=== PATIENT | female | born 1960 | race Caucasian/White ===

== ENCOUNTER → 2019-07-14 14:23 | Outpatient (CLI) | payer OTHER, SELFPAY ==
--- NOTE | ~2019-07-14 | US_ITS ---
EXAMINATION: US thyroid EXAM DATE: 07/14/2019 14:45 INDICATION: Goiter. TECHNIQUE: Multiple grayscale and Doppler images of the thyroid were obtained (by a technologist who performed the scan) and subsequently reviewed. Individual nodules may be reported using TI-RADS syst em as designated by the 2017 ACR White Paper TI-RADS committee. There is no prior study for comparis on. FINDINGS: The right thyroid lobe measures 4.3 x 1.5 x 1.4 cm, the left measuring 4.6 x 1.1 x 1.4 cm. There is a 3 mm nodule in each of the thyroid lobes requiring no further ultrasound follow-up unless additional palpable abnormality develops. IMPRESSION: 1. Mild thyromegaly. 2. Couple small thyroid nodules not likely clinically significant. Reviewed, dictated and finalized at location A. TEACHER
== END ==
PROVIDERS: PCP Physician Assistant; Visit Provider Internal Medicine Endocrinology, Diabetes & Metabolism
DX: E04.2 Nontoxic multinodular goiter (principal)
CPT/HCPCS: 76536

== ENCOUNTER 2020-02-15 12:34 | Outpatient (NON) | payer OTHER, SELFPAY ==
[2020-02-15 23:09] LABS: SARS-CoV-2 RNA PCR Negative
== END 2020-02-15 12:35 ==
PROVIDERS: PCP Physician Assistant; Visit Provider Physician Assistant
DX: Z20.828 Contact with and (suspected) exposure to other viral communicable diseases (principal)
CPT/HCPCS: 87635; C9803; U0003

== ENCOUNTER → 2021-04-29 14:05 | Outpatient (CLI) | payer OTHER, SELFPAY ==
--- NOTE | ~2021-04-29 | MM_ITS ---
EXAMINATION: MM screening kristian BI w lauren HISTORY: Screening mammogram TECHNIQUE: Craniocaudal and mediolateral oblique 3-D tomosynthesis images were obtained and synthetic 2-D images were generated. CAD analysis was submitted and interpreted. COMPARISON: 04/22/2018, 09/20/2016, 07/26/2014 BREAST PARENCHYMAL COMPOSITION: The breasts are heterogeneously dense, which may obscure small masses . FINDINGS: Scattered benign-appearing calcifications are present. There is no evidence of suspicious m ass, calcification, or architectural distortion to suggest malignancy in either breast. There has bee n no suspicious interval change. IMPRESSION: 1. No mammographic evidence of malignancy. 2. Recommend routine screening mammography in one year. BI-RADS Category 2: Benign finding(s). Reviewed, dictated and finalized at location A. AL SPECIALIST
== END ==
PROVIDERS: PCP Physician Assistant; Visit Provider Obstetrics & Gynecology
DX: Z12.31 Encounter for screening mammogram for malignant neoplasm of breast (principal)
CPT/HCPCS: 77063; 77067

== ENCOUNTER → 2022-08-18 15:39 | Outpatient (CLI) | payer OTHER, SELFPAY ==
--- NOTE | ~2022-08-18 | MM_ITS ---
EXAMINATION: MM screening kristian BI w lauren HISTORY: Screening mammogram TECHNIQUE: Craniocaudal and mediolateral oblique 3-D tomosynthesis images were obtained and synthetic 2-D images were generated. CAD analysis was submitted and interpreted. COMPARISON: 04/29/2021, 04/22/2018, 09/20/2016 bilateral screening mammogram examinations BREAST PARENCHYMAL COMPOSITION: The breasts are heterogeneously dense, which may obscure small masses . FINDINGS: There is no evidence of suspicious mass, calcification, or architectural distortion to sugg est malignancy in either breast. There has been no suspicious interval change. IMPRESSION: 1. No mammographic evidence of malignancy. 2. Recommend routine screening mammography in one year. BI-RADS Category 1: Negative Reviewed, dictated and finalized at location A.
== END ==
PROVIDERS: Visit Provider Obstetrics & Gynecology
DX: Z12.31 Encounter for screening mammogram for malignant neoplasm of breast (principal)
CPT/HCPCS: 77063; 77067

== ENCOUNTER 2025-02-22 09:21 | Outpatient (CLI) | payer OTHER, SELFPAY ==
--- OUTSIDE RECORDS SUMMARY | 2024-10-25 10:17 | XMS_ITS | Referral Summary ---
Author Organization [facility] [address] [facility] tt Address [address] [place] [address] Care Team Providers Care Pulp Grinder Name Role Phone January Espinoza NP Primary Care Provider Matthew Perez MD Unavailable [phone] Ramírez Torres MD Unavailable [phone] Encounters Date Type Department Care Team Description 09/30/2024 Results Follow-Up [facility] Complete Care [address] [facility] Medical Office Building [address], [address] [place] [address] January Espinoza NP CBC with auto differential, Erythrocyte sedimentation rate, Cyclic citrul peptide antibody, IgG, GAIL screen w/rflx NICOLE+dsDNA 09/27/2024 Telephone [facility] [address] [place] [address] Erin Castro RN GI Preprocedure 09/22/2024 3:00 PM CDT Office Visit [facility] Complete Care [address] [facility] Medical Office Building [address], [address] [place] [address] January Espinoza NP Encounter for wellness examination in adult (Primary Dx); Screening for colorectal cancer; Encounter to establish care; Fibromyalgia; Hormone imbalance; Hypothyroidism, unspecified type from Last 3 Months Allergies No known active allergies Medications ciprofloxacin (CIPRO) 500 mg tablet 0 Active escitalopram (LEXAPRO) 10 mg tablet TK 1 T PO QD 0 Active progesterone (PROMETRIUM) 100 mg capsule TK 1-2 CS PO QPM 6 DAYS/WEEK 0 Active Nature-Throid 65 mg tablet 0 Active levocetirizine (Xyzal) 5 mg tablet Take 5 mg by mouth every evening Active traZODone (DESYREL) 50 mg tablet Take 1 tablet (50 mg total) by mouth daily Active MAGNESIUM ORAL Take by mouth A ctive acidophilus-pec tin, citrus 100 million cell-10 mg capsule Take by mouth Activ e testosterone cypionate (DEPO-TESTOTERO NE) 200 mg/mL injection INJ 0.1 ML IM Q 7 TO 10 DAYS 0 Active TRACK MAINTAINER Thyroid 60 mg tablet TK 1 T PO QAM OES FOR 30 MIN 0 Active triamterene-hyd roCHLOROthiazid e (Dyazide) 37.5-25 mg per tablet/capsuleI ndications:Meni ere's disease, unspecified laterality Take 1 tablet/capsule by mouth daily 30 tablet/capsu le 11 0 Active predniSONE (DELTASONE) 20 mg tablet Take 1 tablet (20 mg) by mouth 5 Active estradioL (CLIMARA) 0.1 mg/[address] 1 patch on the skin once a week Active polyethylene glycol (GoLYTELY) 236-22.74-6.74 -5.86 gram solution Drink 2L(half of jug)at 6pm night before procedure and 2L(remainder of jug)at 3:30 am day of test FOLLOW INSTRUCTIONS SENT BY OUR OFFICE 4000 mL 5 Active Active Problems Problem Noted Date Diagnosed Date Hypothyroidism 09/27/2024 Fibromyalgia 09/27/2024 Hormone imbalance 09/27/2024 Prediabetes 09/27/2024 Irritable bowel syndrome wit h both constipation and diarrhea 09/27/2024 Insomnia 09/27/2024 Screening for colorectal cancer 09/22/2024 Chronic fatigue Resolved Problems Problem Noted Date Diagnosed Date Resolved Date Screening for colorectal cancer 09/22/2024 09/27/2024 Social History Tobacco Use Types Packs/Day Years Used Date Smoking Tobacco: Never Smokeless Tobacco: Never Alcohol Use Standard Drinks/Week Comments Not Currently 0 (1 standard drink = 0.6 oz pur e alcohol) Humiliation, Afraid, Rape, and Kick questionnair e Answer Date Recorded Within the last year, have y ou been afraid of your partner or ex-partner? No 09/22/2024 Within the last year, have y ou been humiliated or emotionally abused in other ways by your partner or ex-partner? No Within the last year, have y ou been kicked, hit, slapped, or otherwise physically hurt by your partner or ex-partner? No 09/22/2024 Within the last year, have y ou been raped or forced to have any kind of sexual activity by your partner or ex-partner? No 09/22/2024 AUDIT-C Answer Date Recorded Q1: How often do you have a drink containing alc ohol? Monthly or less 09/22/2024 Q2: How many drinks containi ng alcohol do you have on a typical day when you are drinking? 1 or 2 09/22/2024 Q3: How often do you have si x or more drinks on one occasion? Never 09/22/2024 PHQ-2 Answer Date Recorded PHQ-2 Total Score (If total score is 3 or more points, staff should administer the PHQ-9) 2 09/22/2024 Exercise Vital Sign Answer Date Recorde d On average, how many days pe r week do you engage in moderate to strenuous exercise (like a brisk walk)? 5 days 09/22/2024 On average, how many minutes do you engage in exercise at this level? 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 GRADER Gender Identity Female 09/25/2024 9:24 PM CDT Sexual Orientation Straight 09/25/2024 9: 24 PM CDT Last Filed Vital Signs Vital Sign Reading Time Taken Comments Blood Pressure 125/74 09/22/2024 3:10 PM CDT Pulse 80 09/22/2024 3:10 PM CDT Temperature 36.8 C (98.3 F) 09/22/2024 3:10 PM CDT Respiratory Rate 16 03/14/2020 8:15 AM WOOL AND PELT GRADER Oxygen Saturation 97% 09/22/2024 3:10 PM CDT Inhaled Oxygen Concentration - - Weight 55.8 kg (123 lb) 09/22/2024 3:10 PM CDT Height 152.4 cm (5') 09/22/2024 3:10 PM CDT Body Mass Index 24.02 09/22/2024 3:10 PM CDT Plan of Treatment Upcoming Encounters Date Type Department Care Team (Late st Contact Info) Description 11/08/2024 10:30 AM CDT Hospital Encounter [facility] Digestive Disease [place] [address] [address] Michelle Jenkins MD PhD [address] [facility] [address] [place] [address] 11/08/2024 10:30 AM CDT - 11/08/2024 11:15 AM CDT Surgery [facility] Dig[facility]ive Disease [address] [address] Michelle Jenkins MD PhD [address] [facility] [address] [place] [address] COLONOSCOPY Scheduled Procedures Name Priority Associated Diagnoses Date/Ti me COLONOSCOPY Open Access Screening for colorectal cancer 11/08/2024 10:30 AM CDT Procedures Procedure Name Priority Date/Time Associated Diagnosis Comments GAIL TITER & PATTERN Routine 09/28/2024 8 :05 AM CDT GAIL SCREEN W/REFLEX NICOLE+DSDNA Routine 09/28/2024 8:05 AM CDT Fibromyalgia CYCLIC CITRUL PEPTIDE ANTIBODY, IGG Routine 09/28/2024 8:05 AM CDT Fibromyalgia ERYTHROCYTE SEDIMENTATION RATE Routine 09/28/2024 8:05 AM CDT Fibromyalgia CBC WITH AUTO DIFFERENTIAL Routine 09/28/2024 8:05 AM CDT Fibromyalgia from Last 3 Months Results * (ABNORMAL) GAIL screen w/rflx NICOLE+dsDNA (09/28/2024 8:05 AM CDT) GAIL, qual POSITIVE( A) NEGATIVE [facility] Comment: GAIL IFA is a first line screen for detecting the presence of up to approximately 150 autoantibodies in various autoimmune diseases. A positive GAIL IFA result is suggestive of autoimmune disease and reflexes to titer and pattern. Further laboratory testing may be considered if clinically indicated. For additional information, please refer to http://education.[employer]ker[employer]/faq/CWL167 (This link is being provided for informational/ educational purposes only.) DNA (DS) ab 1 IU/mL [facility] Comment: IU/mL Interpretation < or = 4 Negative 5-9 Indeterminate > or = 10 Positive SCL-70 ANTIBODY <1.0 NEG <1.0 NEG AI [facility] SM ANTIBODY <1.0 NEG <1.0 NEG AI [facility] SM/CLASSROOM TEACHER ANTIBODY <1.0 NEG <1.0 NEG AI [facility] SJOGREN'S ANTIBODY (SS-A) <1.0 NEG <1.0 NEG AI [facility] SJOGREN'S ANTIBODY (SS-B) <1.0 NEG <1.0 NEG AI [facility] Blood 09/28/2024 8:05 AM CDT 09/28/2024 8:05 AM CDT Narrative [facility] - 09/30/2024 3:07 PM CDT FASTING:YES FASTING: YES January Espinoza NP LAB BLOOD GUERA FIGUEROA Final Result [facility] [address] [address] * (ABNORMAL) Antinuclear Antibodies Titer and Pattern (09/28/2024 8:05 AM CDT) GAIL, quant 1:40(H) titer [facility] Comment: A low level GAIL titer may be present in pre-clinical autoimmune diseases and normal individuals. Reference Range <1:40 Negative 1:40-1:80 Low Antibody Level >1:80 Elevated Antibody Level GAIL, pattern Nuclear, Speckled( A) [facility] Comment: Speckled pattern is associated with mixed connective tissue disease (MCTD), systemic lupus erythematosus (SLE), Sjogren's syndrome, dermatomyositis, and systemic sclerosis/polymyositis overlap. AC-2,4,5,29: Speckled International Consensus on GAIL Patterns (https://doi.org/10.1515/exfe-9664-2811) 09/28/2024 8:05 AM CDT 09/28/2024 8:05 AM CDT Narrative [facility] - 09/30/2024 3:07 PM CDT FASTING:YES FASTING: YES January Espinoza NP LAB BLOOD GUERA FIGUEROA Final Result [facility] [address] [place] [address] * CBC with auto differential (09/28/2024 8:05 AM CDT) WBC 5.5 3.8 - 10.8 Thousand/u L [facility] RBC, POC 4.46 3.80 - 5.10 Million/uL [facility] Hgb 13.9 11.7 - 15.5 g/dL [facility] Hct 42.7 35.0 - 45.0 % [facility] MCV 95.7 80.0 - 100.0 fL [facility] MCH 31.2 27.0 - 33.0 pg [facility] MCHC 32.6 32.0 - 36.0 g/dL [facility] Comment: For adults, a slight decrease in the calculated MCHC value (in the range of 30 to 32 g/dL) is most likely not clinically significant; however, it should be interpreted with caution in correlation with other red cell parameters and the patient's clinical condition. Rdw 11.9 11.0 - 15.0 % [facility] Platelets 271 140 - 400 Thousand/u L [facility] MPV 10.1 7.5 - 12.5 fL [facility] Neutrophils, abs 2,629 1,500 - 7,800 cells/uL [facility] Lymphocytes, abs 2,217 850 - 3,900 cells/uL [facility] Monocyte abs 380 200 - 950 cells/uL [facility] Eosinophils, abs 248 15 - 500 cells/uL [facility] Basophils, abs 28 0 - 200 cells/uL [facility] Neutrophils 47.8 % [facility] Lymphocyte pct 40.3 % [facility] Monocytes 6.9 % [facility] Eosinophils 4.5 % [facility] Basophils 0.5 % [facility] Blood 09/28/2024 8:05 AM CDT 09/28/2024 8:05 AM CDT Narrative [facility] - 09/30/2024 3:07 PM CDT FASTING:YES FASTING: YES us January Espinoza NP LAB BLOOD ORDAlfreda FIGUEROA Final Result [facility] [address] [place] [address] * Cyclic citrul peptide antibody, IgG (09/28/2024 8:05 AM CDT) Pathologist [facility] Cyclic citrullinated peptide ab, IgG <16 UNITS [facility] Comment: Reference Range Negative: <20 Weak Positive: 20-39 Moderate Positive: 40-59 Strong Positive: >59 Blood 09/28/2024 8:05 AM CDT 09/28/2024 8:05 AM CDT Narrative [facility] - 09/30/2024 3:07 PM CDT FASTING:YES FASTING: YES us January Espinoza NP LAB BLOOD ORDE CAROLINA Final Result [facility] [address] [address] * Erythrocyte sedimentation rate (09/28/2024 8:05 AM CDT) Erythrocyte sedimentation rate 2 < OR = 30 mm/h [facility] Blood 09/28/2024 8:05 AM CDT 09/28/2024 8:05 AM CDT Narrative [facility] - 09/30/2024 3:07 PM CDT FASTING:YES FASTING: YES January Espinoza TRACK MAINTAINER LAB BLOOD GUREA FIGUEROA Final Result Performing Organization Address City/[facility]/ZIP Co de Phone Number [facility] [address] [address] [phone] from Last 3 Months Insurance [facility] Care Teams Pulp Grinder Relationship Specialty Start Date End Date January Espinoza NP [address] [facility], [address] [address] PCP - General Nurse Practitioner 09/22/24 Matthew Perez MD [address] [facility] [address] [address] Referring Physician Obstetrics and Gynecology 09/22/24 Ramírez Torres MD [address] [address] Referring Physician Family Medicine 09/22/24
--- OUTSIDE RECORDS SUMMARY | 2024-10-25 10:17 | XMS_ITS | Encounter Summary ---
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 Procedures US Thyroid January Espinoza NP [address] [place] [address] Phone: tel: fax: [address] [address] Referral ID Status Reason Start Date Expiration Date V isits Requested Visits Authorized [id number] Authorized 10/13/2024 11/12/2025 1 1 Encounter Details Date Type Department Care Team (Late st Contact Info) Description 09/30/2024 Results Follow-Up [facility] Complete Care [address] [place] [address] Medical Office Building [address], [address] [place] [address] January Espinoza NP [address] [place] [address] CBC with auto differential, Erythrocyte sedimentation rate, Cyclic citrul peptide antibody, IgG, GAIL screen w/rflx NICOLE+dsDNA Social History Tobacco Use Types Packs/Day Years [...] on file Legal Sex Female 6:58 PM MEDICAL 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 Gender Identity Female 09/25/2024 9:24 PM CDT Sexual Orientation Straight 09/25/2024 9: 24 PM CDT documented as of this encounter Plan of Treatment Upcoming Encounters Date Type Department Care Team (Late st Contact Info) Description 11/08/2024 10:30 AM CDT Hospital Encounter [facility] Digestive Disease [place] [address] [address] Michelle Jenkins MD PhD [address] [facility] [place] [address] 11/08/2024 10:30 AM CDT - 11/08/2024 11:15 AM CDT Surgery [facility] Digestive Disease [place] [address] [address] Michelle Jenkins MD PhD [address] [facility] [place] [address] COLONOSCOPY Scheduled Orders Name Type Priority Associated Diagnoses Orde r Schedule US Thyroid Imaging Schedule Routine , Read Routine (OP Routine) 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 Expected: 10/13/2024, Expires: 10/13/2025 Scheduled Procedures Name Priority Associated Diagnoses Date/Ti me COLONOSCOPY Open Access Screening for colorectal cancer 11/08/2024 10:30 AM CDT documented as of this encounter Visit Diagnoses Diagnosis Screening for colorectal cancer- Primary 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- Primary Screening for colorectal cancer documented in this encounter Care Teams Circus Roustabout Relationship Specialty Start Date End Date January Espinoza NP [address] [facility] [address] [place] [address] PCP - General Nurse Practitioner 09/22/24 Matthew Perez MD [address] [facility] [address] [facility] [address] [place] [address] Referring Physician Obstetrics and Gynecology 09/22/24 Ramírez Torres MD [address] [address] Referring Physician Family Medicine 09/22/24 documented as of this encounter
--- OUTSIDE RECORDS SUMMARY | 2024-10-25 10:17 | XMS_ITS | Clinical Summary ---
Author Organization [facility] [address] [facility] tt Address [address] [place] [address] Care Team Providers Care Food And Beverage Attendant Name Role Phone January Espinoza QUALITY LEAD Primary Care Provider Matthew Perez MD Unavailable [phone] Ramírez Torres MD Unavailable [phone] Allergies No known active allergies Medications ciprofloxacin [...] Q 7 TO 10 DAYS 0 Active QUALITY LEAD Thyroid 60 mg tablet TK 1 T [...] Date Screening for colorectal cancer 09/22/2024 09/27/2024 Encounters Date Type Department Care Team Description 09/30/2024 Results Follow-Up [facility] [address] [address] [place] [address] January Espinoza NP CBC with auto differential, Erythrocyte sedimentation rate, Cyclic citrul peptide antibody, IgG, GAIL screen w/rflx NICOLE+dsDNA 09/27/2024 Telephone [facility] [address] [place] [address] Erin Castro RN GI Preprocedure 09/22/2024 3:00 PM CDT Office Visit [facility] [address] [place] [address] January Espinoza NP Encounter for wellness examination in adult (Primary Dx); Screening for colorectal cancer; Encounter to establish care; Fibromyalgia; Hormone imbalance; Hypothyroidism, unspecified type from Last 3 Months Medical History Medical History Date Comments Hypothyroidism Nicolle Delarosa virus infection Fibromyalgia Prediabetes Gestational diabetes IBS (irritable bowel syndrome) 1973 Small intestinal bacterial overgrowth (SIBO) 202 0 Chronic fatigue Shingles Candidal enteritis Family History Medical History Relation Name Comments Diabetes Father Hypertension Father Skin cancer Father Heart attack Maternal Grandfather Heart disease Maternal Grandfather Heart disease Maternal Grandmother Dementia Mother Relation Name Status Comments Father Maternal Grandfather Maternal Grandmother Mother Paternal Grandfather Paternal Grandmother Social History Tobacco Use Types Packs/Day Years [...] on file Legal Sex Female 6:58 PM STUDENT SUPPORT COUNSELOR Gender Identity Female 09/25/2024 9:24 PM CDT Sexual Orientation Straight 09/25/2024 9: 24 PM CDT Obstetrics History Last Filed Vital Signs Vital Sign Reading Time Taken Comments Blood Pressure 125/74 09/22/2024 3:10 PM CDT Pulse 80 09/22/2024 3:10 PM CDT Temperature 36.8 C (98.3 F) 09/22/2024 3:10 PM CDT Respiratory Rate 16 03/14/2020 8:15 AM STUDENT SUPPORT COUNSELOR Oxygen Saturation 97% 09/22/2024 3:10 PM CDT Inhaled Oxygen Concentration - - Weight 55.8 kg (123 lb) 09/22/2024 3:10 PM CDT Height 152.4 cm (5') 09/22/2024 3:10 PM CDT Body Mass Index 24.02 09/22/2024 3:10 PM CDT Plan of Treatment Upcoming Encounters Date Type Department Care Team (Late st Contact Info) Description 11/08/2024 10:30 AM CDT Hospital Encounter [facility] Digestive [facility] [place] [id number] [address] Michelle Jenkins MD PhD [address] [place] [address] 11/08/2024 10:30 AM CDT - 11/08/2024 11:15 AM CDT Surgery [facility] Digestive Disease [place] [address] [address] Michelle Jenkins MD PhD [address] [place] [address] COLONOSCOPY Scheduled Procedures Name Priority Associated Diagnoses Date/Ti me COLONOSCOPY Open Access Screening for colorectal cancer 11/08/2024 10:30 AM CDT Health Maintenance Due Date Last Done Comments Breast Cancer Screening-Mammogram 1960 Cervical Cancer Screening 1961 Colon Cancer Screening-Colonoscopy 1961 DTaP/Tdap/Td Vaccine (1 - Tdap) 1972 Zoster Vaccine (1 of 2) 2011 Covid-19 Vaccine (3 - season) 2024 08/24/2020, 08/03/2020 Influenza Vaccine (Season Ended) 2025 Depression Screening 09/22/2025 09/22/2024 Regular Well Visit/Exam 18-64 09/22/2025 09/22/2024 Hepatitis B Screening Discontinued Hepatitis C Screening Discontinued Pneumococcal vaccine <65 Aged Out No longer eligible based on patient's age to complete this topic Procedures Procedure Name Priority Date/Time Associated Diagnosis [...] AM CDT) GAIL, qual POSITIVE( A) NEGATIVE [facility] [place] Comment: GAIL IFA is a first line screen for detecting the presence of up to approximately 150 autoantibodies in various autoimmune diseases. A positive GAIL IFA result is suggestive of autoimmune disease and reflexes to titer and pattern. Further laboratory testing may be considered if clinically indicated. For additional information, please refer to http://education.[employer].Guanghetang/faq/VIG526 (This link is being provided for informational/ educational purposes only.) DNA (DS) ab 1 IU/mL [facility] [place] Comment: IU/mL Interpretation < or = 4 Negative 5-9 Indeterminate > or = 10 Positive SCL-70 ANTIBODY <1.0 NEG <1.0 NEG AI [facility] [place] SM ANTIBODY <1.0 NEG <1.0 NEG AI [facility] [place] [facility] SM/SCALLOP DREDGER ANTIBODY <1.0 NEG <1.0 NEG AI [facility] [place] SJOGREN'S ANTIBODY (SS-A) <1.0 NEG <1.0 NEG AI [facility] SJOGREN'S ANTIBODY (SS-B) <1.0 NEG <1.0 NEG AI [facility] [place] [facility] Blood 09/28/2024 8:05 AM CDT 09/28/2024 8:05 AM CDT Narrative [facility] - 09/30/2024 3:07 PM CDT FASTING:YES FASTING: YES us January Espinoza NP LAB BLOOD ORDAlfreda FIGUEROA Final Result [facility] [address] [place] [address] * (ABNORMAL) Antinuclear Antibodies Titer and Pattern [...] AC-2,4,5,29: [employer] International Consensus on GAIL Patterns (https://doi.org/10.1515/ieqh-0103-5425) 09/28/2024 8:05 AM CDT 09/28/2024 8:05 AM CDT Narrative [facility] - 09/30/2024 3:07 PM CDT FASTING:YES FASTING: YES us January LeesPhillip QUALITY LEAD LAB BLOOD GUERA FIGUEROA Final Result [facility] [address] [address] * CBC with auto differential (09/28/2024 8:05 [...] FASTING: YES January Espinoza NP LAB BLOOD ORDE RABLES Final Result Performing Organization Address [facility] Co de Phone Number [facility] [facility] [address] [place] [address] * Cyclic citrul peptide antibody, IgG (09/28/2024 8:05 AM CDT) Cyclic citrullinated peptide ab, IgG <16 UNITS [facility] Comment: Reference Range Negative: <20 Weak Positive: 20-39 Moderate Positive: 40-59 Strong Positive: >59 Blood 09/28/2024 8:05 AM CDT 09/28/2024 8:05 AM CDT Narrative [facility] - 09/30/2024 3:07 PM CDT FASTING:YES FASTING: YES January Espinoza NP LAB BLOOD ORDE RABLES Final Result Performing Organization Address [facility] de Phone Number [facility] [address] [place] [address] * Erythrocyte sedimentation rate (09/28/2024 8:05 AM CDT) Pathologist [facility] Erythrocyte sedimentation rate 2 < OR = 30 mm/h [facility] Blood 09/28/2024 8:05 AM CDT 09/28/2024 8:05 AM CDT Narrative [facility] - 09/30/2024 3:07 PM CDT FASTING:YES FASTING: YES January Espinoza NP LAB BLOOD ORDE RABLES Final Result Performing Organization Address [facility] Co de Phone Number [facility] [place] [address] [place] [address] from Last 3 Months Insurance [facility] Address: [address] [place] [address] [facility]/PPO Address: [address] [place] [address] R [facility] Address: [address] [address] Care Teams Food And Beverage Attendant Relationship Specialty Start Date End Date January Espinoza NP [address] [facility] [address] [place] [address] PCP - General Nurse Practitioner 09/22/24 Matthew Perez MD [address] [place] [address] Referring Physician Obstetrics and Gynecology 09/22/24 Ramírez Torres MD [address] [facility] [address] [place] [address] Referring Physician Family Medicine 09/22/24
--- OUTSIDE RECORDS SUMMARY | 2025-02-22 10:29 | XMS_ITS | Clinical Summary ---
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 Primary Care Provider Matthew Perez MD Unavailable [phone] Ramírez Torres MD Unavailable [phone] Allergies Active Allergy Reactions Criticality Noted Date Comments House Dust Mite Headache Low 11/14/2024 Mold Headache Low 08/17/2024 feels sick Medications traZODone (DESYREL) 100 mg tablet Take 1 tablet (100 mg total) by mouth daily 100-150 mg nightly as needed for sleep Active MAGNESIUM ORAL Take by mouth A ctive acidophilus-pec tin, citrus 100 million cell-10 mg capsule Take by mouth Activ e polyethylene glycol (GoLYTELY) 236-22.74-6.74 -5.86 gram solution Drink 2L(half of jug)at 6pm night before procedure and 2L(remainder of jug)at 3:30 am day of test FOLLOW INSTRUCTIONS SENT BY OUR OFFICE 4000 mL 5 Active estradiol-noret hindrone acet (COMBIPATCH) 0.05-0.25 mg/[address] 1 patch on the skin 2 (two) times a week 8 patch 11 5 12/13/19 26 Active famotidine (PEPCID) 20 mg tablet Take 1 tablet (20 mg total) by mouth 2 (two) times a day Active QUERCETIN DIHYDRATE, BULK, MISC 1 Dose daily Active levocetirizine (Xyzal) 5 mg tablet Take 1 tablet (5 mg total) by mouth daily Active gabapentin (NEURONTIN) 300 mg capsule Take 1 capsule (300 mg total) by mouth 3 (three) times a day 90 capsule 4 5 12/10/19 Active Active Problems Problem Noted Date Diagnosed Date Menopause syndrome 12/08/2024 Hypothyroidism 09/27/2024 Fibromyalgia 09/27/2024 Hormone imbalance 09/27/2024 Prediabetes 09/27/2024 Irritable bowel syndrome wit h both constipation and diarrhea 09/27/2024 Insomnia 09/27/2024 Screening for colorectal cancer 09/22/2024 Chronic fatigue Resolved Problems Problem Noted Date Diagnosed Date Resolved Date Screening for colorectal cancer 09/22/2024 09/27/2024 Encounters Date Type Department Care Team Description 01/16/2025 Results Follow-Up [facility] [address] [place] [address] [email or web address] [address] [place] [phone] Andrade Bryan MD URINE MISC TO FRENCH CAMP, URINE MISC TO FRENCH CAMP, URINE MISC TO FRENCH CAMP 01/11/2025 Telephone [facility] Special[facility] Services [address] [place] [phone] Lin Corona, RN GI Preprocedure 01/06/2025 Telephone [facility] Specialty Services [address] [place] [phone] Lin Corona, RN GI Preprocedure 01/04/[address] [facility] Lab [facility] [place] [address] Andrade Bryan MD 01/03/2025 8:00 AM CDT - 01/03/2025 11:59 PM CDT Hospital Encounter [facility] [place] [address] Temperature intolerance; Chronic fatigue Discharge Disposition: Discharge to home or self care 01/03/2025 Results Follow-Up [facility] [address] [place], [place] [address] [address] [place] [phone] Andrade Bryan MD IgE, Allergen Epithelia/dander dog (animal) IgE, Allergen Dermatophagoides pteronyssinus (insect) IgE, Additional followed-up results: 23 12/28/2024 3:30 PM CDT Lab [facility] at [address] [place] [phone] Temperature intolerance; Chronic fatigue; Allergic rhinitis caused by mold 12/28/2024 1:00 PM CDT Office Visit [facility] [address] [facility] Medical Office Building 2 [address] [place] [address] Andrade Bryan MD Temperature intolerance (Primary Dx); Chronic fatigue; Mast cell disorder; Allergic rhinitis caused by mold 12/16/2024 Telephone [facility] Endocrinology Metabolism and Lipid [address] [facility] Floor 1, [address] [place] [address] India Bran RMA Prior Auth (Request for KRISHAN Climara Pro 0.045-0.015mg) 12/09/2024 2:40 PM CDT Office Visit [facility] [address] [place] [address] Office Building 4, [address] [place] [address] January Espinoza NP Temperature intolerance (Primary Dx) 12/09/2024 Orders Only [facility] Endocrinology Metabolism and Lipid [address] [facility] [address] [place] [phone] Christine Neville MD 12/09/2024 Orders Only [facility] Endocrinology Metabolism and Lipid 1 [facility] 1 [place] [address] Christine Neville MD Flushing (Primary Dx) 12/06/2024 Telephone [facility] Endocrinology Metabolism and Lipid [address] [place] [address] Office Building 4, [address] [place] [address] Katina Saenz RN PA estrogen patch 12/06/2024 Telephone [facility] [address] [facility] Office Building 4, [address] [place] [address] January Hyde NP Referral Request 12/05/2024 Orders Only [facility] Endocrinology Metabolism and Lipid 1 [facility] [address] [place] [address] Christine Neville MD 12/05/2024 Telephone [facility] Endocrinology Metabolism and Lipid [address] [facility] Medical Office Building 4, [address] [place] [address] Katina Saenz RN estrogen order and hormonal therapy from Last 3 Months Medical History Medical History Date Comments Hypothyroidism Nicolle Delarosa virus infection Fibromyalgia Prediabetes Gestational diabetes IBS (irritable bowel syndrome) 1973 Small intestinal bacterial overgrowth (SIBO) 202 0 Chronic fatigue Shingles Candidal enteritis Autoimmune disease 1989 Anxiety Many years Rakesh's thyroiditis 2018 Hypoglycemia Childhood Family History Medical History Relation Name Comments Cancer Father Alexys Becerra Diabetes Father Alexys Becerra Early Father Alexys Becerra Heart attack Father Alexys Becerra Hypertension Father Alexys Becerra Skin cancer Father Alexys Becerra Heart attack Maternal Grandfather Kierra Mejia Heart disease Maternal Grandfather Kierra Mejia Heart disease Maternal Grandmother Alzheimer's disease Mother Roro Becerra Dementia Mother Roro Becerra Stroke Mother Roro Becerra Relation Name Status Comments Father Alexys Becerra Maternal Grandfather Kierra Mejia Maternal Grandmother Mother Roro Becerra Paternal Grandfather Paternal Grandmother Social History Tobacco [...] by your partner or ex-partner? No 09/22/2024 PHQ-2 Answer Date Recorded PHQ-2 Total [...] Date Recorded PHQ-9 Total Score 9 09/22/2024 AUDIT-C Answer Date Recorded Q1: How often do you have a drink containing alc ohol? 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 Gender Identity Female 09/25/2024 9:24 PM CDT Sexual Orientation Straight 09/25/2024 9: 24 PM CDT Obstetrics History Last Filed Vital Signs Vital Sign Reading Time Taken Comments Blood Pressure 126/76 12/28/2024 1:14 PM CDT Pulse 73 12/28/2024 1:14 PM CDT Temperature 36.4 C (97.6 F) 12/28/2024 1:14 PM CDT Respiratory Rate 20 12/28/2024 1:14 PM CDT Oxygen Saturation 97% 12/28/2024 1:14 PM CDT Inhaled Oxygen Concentration - - Weight 53.4 kg (117 lb 11.2 oz) 12/28/2024 1:14 PM CDT Height 152.4 cm (5') 12/28/2024 1:14 PM CDT Body Mass Index 22.99 12/28/2024 1:14 PM CDT Plan of Treatment Health Maintenance Due Date Last Done Comments Breast Cancer Screening-Mammogram 1961 Cervical Cancer Screening 1961 Colon Cancer Screening-Colonoscopy 1961 DTaP/Tdap/Td Vaccine (1 - Tdap) 1972 Zoster Vaccine (1 of 2) 2011 Covid-19 Vaccine (3 - season) 2025 08/24/2020, 08/03/2020 Influenza Vaccine (#1) 2025 Depression Screening 09/22/2025 09/22/2024 Regular Well Visit/Exam 18-64 09/22/2025 09/22/2024 Hepatitis B Screening Discontinued Hepatitis C Screening Discontinued Pneumococcal vaccine <65 Aged Out No longer eligible based on patient's age to complete this topic Procedures Procedure Name Priority Date/Time Associated Diagnosis Comments URINE MISC TO FRENCH CAMP Routine 01/03/2025 8: 00 AM CDT URINE MISC TO FRENCH CAMP Routine 01/03/2025 8: 00 AM CDT URINE MISC TO FRENCH CAMP Routine 01/03/2025 8: 00 AM CDT ALLERGEN BIRCH COMMON SILVER (TREE) IGE Routine 12/28/2024 2:58 PM CDT Allergic rhinitis caused by mold ALLERGEN ELM (TREE) IGE Routine 12/29/19 2:58 PM CDT Allergic rhinitis caused by mold ALLERGEN MAPLE/BOX ELDER (TREE) IGE Routine 12/28/2024 2:58 PM CDT Allergic rhinitis caused by mold ALLERGEN MOUNTAIN JUNIPER (TREE) IGE Routine 12/28/2024 2:58 PM CDT Allergic rhinitis caused by mold ALLERGEN MULBERRY (TREE) IGE Routine 12/28/2024 2:58 PM CDT Allergic rhinitis caused by mold ALLERGEN OAK RED (TREE) IGE Routine 12/28/2024 2:58 PM CDT Allergic rhinitis caused by mold ALLERGEN SYCAMORE SALVADOREAN (TREE) IGE Routine 12/28/2024 2:58 PM CDT Allergic rhinitis caused by mold ALLERGEN WALNUT (TREE) IGE Routine 12/28/2024 2:58 PM CDT Allergic rhinitis caused by mold ALLERGEN BERMUDA GRASS (GRASS) IGE Routine 12/28/2024 2:58 PM CDT Allergic rhinitis caused by mold ALLERGEN RICARDO GRASS (GRASS) IGE Routine 12/28/2024 2:58 PM CDT Allergic rhinitis caused by mold ALLERGEN CARLOS GRASS (GRASS) IGE Routine 12/28/2024 2:58 PM CDT Allergic rhinitis caused by mold ALLERGEN PLANTAIN GERMAN (WEED) IGE Routine 12/28/2024 2:58 PM CDT Allergic rhinitis caused by mold ALLERGEN TALBERT'S QUARTER (WEED) IGE Routine 12/28/2024 2:58 PM CDT Allergic rhinitis caused by mold ALLERGEN PIGWEED ROUGH (WEED) IGE Routine 12/28/2024 2:58 PM CDT Allergic rhinitis caused by mold ALLERGEN RAGWEED SHORT/COMMON (WEED) IGE Routine 12/28/2024 2:58 PM CDT Allergic rhinitis caused by mold ALLERGEN NETTLE (WEED) IGE Routine 12/28/2024 2:58 PM CDT Allergic rhinitis caused by mold ALLERGEN ALTERNARIA TENUIS (MOLD) IGE Routine 12/28/2024 2:58 PM CDT Allergic rhinitis caused by mold ALLERGEN ASPERGILLUS FUMIGATUS (MOLD) IGE Routine 12/28/2024 2:58 PM CDT Allergic rhinitis caused by mold ALLERGEN CLADOSPORIUM HERBARUM (MOLD) IGE Routine 12/28/2024 2:58 PM CDT Allergic rhinitis caused by mold ALLERGEN PENICILLIUM CHRYSOGENUM (MOLD) IGE Routine 12/28/2024 2:58 PM CDT Allergic rhinitis caused by mold ALLERGEN EPITHELIA/DANDER CAT (ANIMAL) IGE Routine 12/28/2024 2:58 PM CDT Allergic rhinitis caused by mold ALLERGEN COCKROACH SALVADOREAN (INSECT) IGE Routine 12/28/2024 2:58 PM CDT Allergic rhinitis caused by mold ALLERGEN DERMATOPHAGOIDES FARINAE (INSECT) IGE Routine 12/28/2024 2:58 PM CDT Allergic rhinitis caused by mold ALLERGEN DERMATOPHAGOIDES PTERONYSSINUS (INSECT) IGE Routine 12/28/2024 2:58 PM CDT Allergic rhinitis caused by mold ALLERGEN EPITHELIA/DANDER DOG (ANIMAL) IGE Routine 12/28/2024 2:58 PM CDT Allergic rhinitis caused by mold IGE Routine 12/28/2024 2:58 PM CDT Allergic rhinitis caused by mold TRYPTASE Routine 12/24/2024 12:03 PM CDT [place] GTT 75GM 2HR NON-GESTATIONAL SCREEN Timed 12/19/2024 9:11 AM CDT Hyperglycemia T3, FREE Routine 11/29/2024 9:53 AM CDT Hyperthyroidism T4, FREE Routine 11/29/2024 9:53 AM CDT Hyperthyroidism TSH Routine 11/29/2024 9:53 AM CDT Hyperthyroidism from Last 3 Months Results * URINE [facility] TO FRENCH CAMP (01/03/2025 8:00 AM CDT) Pathologist [facility] Test name, chem [id number],Leukot riene E4, 24 Hour, Urine [place] [facility] Comment:Testing performed by : [facility], [address] [place] [address], [place]., [address] [facility] See Footnote LISANDRA BROWN Comment: Test Result Flag Unit RefValue Leukotriene E4, 24 Hr, U Leukotriene E4, U <77 pg/mg Cr <=104 The Leukotriene E(4) concentration in this sample was undetectable. Repeat analysis is recommended if clinically indicated. ADDITIONAL INFORMATION This test was developed and its performance characteristics determined by [facility] in a manner consistent with CLIA requirements. This test has not been cleared or approved by the U.S. Food and Drug Administration. Creatinine, 24 HR, U 780 mg/24 h 603 - 9057 Collection Duration (h) 24 h Urine Volume (mL) 3000 mL Creatinine Concentration, 26 mg/dL 24 HR, U Test Performed by: [facility] [address] [place] [address] High School Art Teacher: Ahmet Antonio Ph.D.; CLIA# [id number] Test Performed by: [facility] [address] [place] [address] High School Art Teacher: Ahmet Antonio Ph.D.; CLIA# [id number] Testing performed by: [facility], [address] [place] [address], [address] Urine 01/03/2025 8:00 AM CDT 01/04/2025 12:04 PM CDT Andrade Bryan MD LAB URINE ORDERABLES Fin al Result LISANDRA BROWN [address] [facility] [place] [address] [facility] * URINE MISC TO FRENCH CAMP (01/03/2025 8:00 AM CDT) Test name, chem 23BPT,2,3-Di nor 11 Beta-Prostag álvaro F2 Alpha, 24 [place] [facility] Comment:Testing performed by : [facility], [address] [place] [address]., [address] Misc See Footnote LISANDRA BROWN Comment: Test Result Flag Unit RefValue 2,3-dinor 11B-Prostaglandin F2a, U 2,3-dinor 11B- <978 pg/mg Cr <1802 Prostaglandin F2a The 2,2-kymxr-21-Beta-Prostaglandin F2 Alpha (2,3BPG) concentration in this sample was undetectable. Repeat analysis is recommended if clinically indicated. ADDITIONAL INFORMATION Cautions: 2,3BPG will be decreased in individuals who have taken aspirin within two weeks or other NSAIDs within 72 hours. This test was developed and its performance characteristics determined by [facility] in a manner consistent with CLIA requirements. This test has not been cleared or approved by the U.S. Food and Drug Administration. Creatinine, 24 HR, U 960 mg/24 h 603 1783 Collection Duration (h) 24 h Urine Volume (mL) 3000 mL Creatinine Concentration, 32 mg/dL 24 HR, U Test Performed by: [facility] [address] [place] [address] High School Art Teacher: Ahmet Antonio Ph.D.; CLIA# [id number] Test Performed by: [facility] [address] [place] [address] High School Art Teacher: Ahmet Antonio Ph.D.; CLIA# [id number] Testing performed by: [facility], [address] [place] [address]., [address] Urine 01/03/2025 8:00 AM CDT 01/04/2025 11:58 AM CDT us Andrade Bryan MD LAB URINE ORDERABLES Fin al Result LISANDRA [address] [facility] Department [place] [address] [facility] * URINE MISC TO FRENCH CAMP (01/03/2025 8:00 AM CDT) Test name, chem NMH24,N-Meth ylhistamine, 24 Hour, Urine [facility] Lab Comment:Testing performed by : [facility], [address] [place] [address]., [address] [facility] See Footnote LISANDRA BROWN Comment: Test Result Flag Unit RefValue N-Methylhistamine, 24 Hr, U N-Methylhistamine, 24 Hr 135 mcg/g Cr 30-200 ADDITIONAL INFORMATION This test was developed and its performance characteristics determined by [facility] in a manner consistent with CLIA requirements. This test has not been cleared or approved by the U.S. Food and Drug Administration. Creatinine, 24 HR, U 930 mg/24 h 603 - 1668 Collection Duration (h) 24 h Urine Volume (mL) 3000 mL Creatinine Concentration, 31 mg/dL 24 HR, U Test Performed by: [facility] [address] [place] [address] High School Art Teacher: Ahmet Antonio Ph.D.; CLIA# [id number] Test Performed by: [facility] [address] [place] [address] High School Art Teacher: Ahmet Antonio Ph.D.; CLIA# [id number] Testing performed by: [facility], [address] [place] [address]., [id number] Urine 01/03/2025 8:00 AM CDT 01/04/2025 11:12 AM CDT us Andrade Bryan MD LAB URINE ORDERABLES Fin al Result LISANDRA BROWN [address] [facility] Department [place] [address] [facility] * Allergen Penicillium chrysogenum (mold) IgE (12/28/2024 2:58 PM CDT) Penicillium chrysogenum IgE <0.10 0.00 - 0.34 kUnits/L Comment:Testing performed by : [facility], [address] [place] [address]., [id number] Blood 12/28/2024 2:58 PM CDT 12/28/2024 7:15 PM CDT Andrade Bryan MD LAB BLOOD ORDERABLES Fin al Result Performing Organization Address City/[facility] Co de Phone Number [facility] [address] [place] [address] * Allergen Calumet (tree) IgE (12/28/2024 2:58 PM CDT) Pathologist [facility] Calumet IgE <0.10 0.00 - 0.34 kUnits/L Comment:Testing performed by : [facility], [address] [place] [address]., [id number] Blood 12/28/2024 2:58 PM CDT 12/28/2024 7:15 PM CDT Andrade Bryan MD LAB BLOOD ORDERABLES Fin al Result Performing Organization Address City/[facility] Co de Phone Number [facility] [address] [place] [address] * Allergen Mountain juniper (tree) IgE (12/28/2024 2:58 PM CDT) Mountain juniper IgE <0.10 0.00 - 0.34 kUnits/L Comment:Testing performed by : [facility], [address] [place] [address]., [id number] Blood 12/28/2024 2:58 PM CDT 12/28/2024 7:15 PM CDT Andrade Bryan MD LAB BLOOD ORDERABLES Fin al Result Performing Organization Address [facility] Co de Phone Number LISANDRA [facility] [address] [employer]. [facility] [place] [address] * Allergen Bermuda grass (grass) IgE (12/28/2024 2:58 PM CDT) Bermuda grass IgE <0.10 0.00 - 0.34 kUnits/L Comment:Testing performed by : [facility], [address] [place] [address]., [id number] Blood 12/28/2024 2:58 PM CDT 12/28/2024 7:15 PM CDT Andrade Bryan MD LAB BLOOD ORDERABLES Fin al Result Performing Organization Address [facility] de Phone Number [facility] [address] [employer]. [facility] [place] [address] * Allergen Plantain maldivian (weed) IgE (12/28/2024 2:58 PM CDT) Plantain maldivian IgE <0.10 0.00 - 0.34 kUnits/L Comment:Testing performed by : [facility], [address] [place] [address]., [address] Blood 12/28/2024 2:58 PM CDT 12/28/2024 7:15 PM CDT Andrade Bryan MD LAB BLOOD ORDERABLES Fin al Result Performing Organization Address [facility] Co de Phone Number LISANDRA BJW[facility] [address] [employer] [facility] [place] [address] * Allergen Elm (tree) IgE (12/28/2024 2:58 PM CDT) Elm IgE <0.10 0.00 - 0.34 kUnits/L Comment:Testing performed by : [facility], [address] [place] [address]., [address] Blood 12/28/2024 2:58 PM CDT 12/28/2024 7:15 PM CDT Result [facility] Andrade Bryan MD LAB BLOOD ORDERABLES Fin al Result Performing Organization Address [facility] Co de Phone Number [facility] [address] [employer]. [facility] [employer] [place], [place] [id number] * Allergen Cladosporium herbarum (mold) IgE (12/28/2024 2:58 PM CDT) Cladosporium herbarum IgE <0.10 0.00 - 0.34 kUnits/L Comment:Testing performed by : [facility], [address] [place] [address]., [id number] Blood 12/28/2024 2:58 PM CDT 12/28/2024 7:15 PM CDT Result [facility] Andrade Bryan MD LAB BLOOD ORDERABLES Fin al Result Performing Organization Address [facility] Co de Phone Number [facility] BJW[facility] [address] [employer]. [facility] [place] [address] * Allergen Birch common silver (tree) IgE (12/28/2024 2:58 PM CDT) Birch common silver IgE <0.10 0.00 - 0.34 kUnits/L Comment:Testing performed by : [facility], [address] [place] [address]., [address] Blood 12/28/2024 2:58 PM CDT 12/28/2024 7:15 PM CDT Andrade Bryan MD LAB BLOOD ORDERABLES Fin al Result Performing Organization Address [facility] Co de Phone Number LISANDRA [facility] [address] [facility] [place] [address] * Allergen Alternaria tenuis (mold) IgE (12/28/2024 2:58 PM CDT) Alternaria tenius IgE <0.10 0.00 - 0.34 kUnits/L Comment:Testing performed by : [facility], [address] [place] [address]., [id number] Blood 12/28/2024 2:58 PM CDT 12/28/2024 7:15 PM CDT Andrade Bryan MD LAB BLOOD ORDERABLES Fin al Result Performing Organization Address [facility] de Phone Number LISANDRA BJW[facility] [address] [employer]. [facility] [place] [address] * Allergen Aspergillus fumigatus (mold) IgE (12/28/2024 2:58 PM CDT) Aspergillus fumigatus IgE <0.10 0.00 - 0.34 kUnits/L Comment:Testing performed by : [facility], [address] [place] [address]., [id number] Blood 12/28/2024 2:58 PM CDT 12/28/2024 7:15 PM CDT Andrade Bryan MD LAB BLOOD ORDERABLES Fin al Result Performing Organization Address [facility] Co de Phone Number LISANDRA [facility] [address] [facility] [employer] [place], [place] [id number] * Allergen Dermatophagoides pteronyssinus (insect) IgE (12/28/2024 2:58 PM CDT) Dermatophyton pteronyssinus IgE <0.10 0.00 - 0.34 kUnits/L Comment:Testing performed by : [facility], [address] [place] [address]., [address] Blood 12/28/2024 2:58 PM CDT 12/28/2024 7:15 PM CDT Andrade Bryan MD LAB BLOOD ORDERABLES Fin al Result Performing Organization Address [facility] de Phone Number [facility] [address] [employer]. [facility] [place] [address] * Allergen Dermatophagoides farniae (insect) IgE (12/28/2024 2:58 PM CDT) Dermatophyton farinae IgE <0.10 0.00 - 0.34 kUnits/L Comment:Testing performed by : [facility], [address] [place] [address]., [id number] Blood 12/28/2024 2:58 PM CDT 12/28/2024 7:15 PM CDT Result [facility] Andraed Bryan MD LAB BLOOD ORDERABLES Fin al Result Performing Organization Address [facility] Phone Number [facility] BJ[facility] [address] [employer]. [facility] [place] [address] * Allergen Epithelia/dander dog (animal) IgE (12/28/2024 2:58 PM CDT) Dog dander IgE <0.10 0.00 - 0.34 kUnits/L Comment:Testing performed by : [facility], [address] [place] [address]., [id number] Blood 12/28/2024 2:5 8 PM CDT 12/28/2024 7:15 PM CDT Andrade Bryan MD LAB BLOOD ORDERABLES Fin al Result Performing Organization Address [facility]/ZIP Co de Phone Number [facility] [address] [employer]. [facility] [place] [address] * Allergen Cockroach anguillan (insect) IgE (12/28/2024 2:58 PM CDT) Cockroach IgE <0.10 0.00 - 0.34 kUnits/L Comment:Testing performed by : [facility], [address] [place] [address]., [id number] Blood 12/28/2024 2:58 PM CDT 12/28/2024 7:15 PM CDT Andrade Bryan MD LAB BLOOD ORDERABLES Fin al Result Performing Organization Address [facility] Co de Phone Number [facility] [facility] [address] [employer]. [facility] [place], [place] [id number] * Allergen Epithelia/dander cat (animal) IgE (12/28/2024 2:58 PM CDT) Cat dander IgE <0.10 0.00 - 0.34 kUnits/L Comment:Testing performed by : [facility], [address] [place] [address]., [id number] Blood 12/28/2024 2:58 PM CDT 12/28/2024 7:15 PM CDT Andrade Bryan MD LAB BLOOD ORDERABLES Fin al Result Performing Organization Address [facility] Co de Phone Number [facility] [address] [employer]. [facility] [place], [place] [id number] * Allergen Ragweed short/common (weed) IgE (12/28/2024 2:58 PM CDT) Ragweed common IgE <0.10 0.00 - 0.34 kUnits/L Comment:Testing performed by : [facility], [address] [place] [address]., [id number] Blood 12/28/2024 2:58 PM CDT 12/28/2024 7:15 PM CDT Andrade Bryan MD LAB BLOOD ORDERABLES Fin al Result Performing Organization Address City/[facility] Co de Phone Number [facility] [address] [employer] [address] * Allergen Pigweed, rough (weed) IgE (12/28/2024 2:58 PM CDT) Pigweed rough IgE <0.10 0.00 - 0.34 kUnits/L Comment:Testing performed by : [facility], [address] [place] [address]., [id number] Blood 12/28/2024 2:58 PM CDT 12/28/2024 7:15 PM CDT Result [facility] Andrade Bryan MD LAB BLOOD ORDERABLES Fin al Result Performing Organization Address [facility] Co de Phone Number [facility] [address] [employer] [address] * Allergen Nettle (weed) IgE (12/28/2024 2:58 PM CDT) Nettle IgE <0.10 0.00 - 0.34 kUnits/L Comment:Testing performed by : [facility], [address] [place] [address]., [id number] Blood 12/28/2024 2:58 PM CDT 12/28/2024 7:15 PM CDT Andrade Bryan MD LAB BLOOD ORDERABLES Fin al Result Performing Organization Address City/[facility] Co de Phone Number [facility] [address] [employer]. [facility] [place] [address] * Allergen Talbert's quarter (weed) IgE (12/28/2024 2:58 PM CDT) Talbert's quarters IgE <0.10 0.00 - 0.34 kUnits/L Comment:Testing performed by : [facility], [address] [place] [address]., [id number] Blood 12/28/2024 2:58 PM CDT 12/28/2024 7:15 PM CDT Andrade Bryan MD LAB BLOOD ORDERABLES Fin al Result Performing Organization Address [facility] Co de Phone Number [facility] [address] [facility] [facility] [place] [address] * Allergen Carlos grass (grass) IgE (12/28/2024 2:58 PM CDT) Pathologist [facility] Carlos grass IgE <0.10 0.00 - 0.34 kUnits/L Comment:Testing performed by : [facility], [address] [place] [address]., [id number] Blood 12/28/2024 2:58 PM CDT 12/28/2024 7:15 PM CDT Andrade Bryan MD LAB BLOOD ORDERABLES Fin al Result Performing Organization Address City/[facility] Co de Phone Number [facility] [address] [address] [place] [address] * Allergen Ricardo grass (grass) IgE (12/28/2024 2:58 PM CDT) Ricardo grass IgE <0.10 0.00 - 0.34 kUnits/L Comment:Testing performed by : [facility], [address] [place] [address]., [id number] Blood 12/28/2024 2:58 PM CDT 12/28/2024 7:15 PM CDT Andrade Bryan MD LAB BLOOD ORDERABLES Fin al Result Performing Organization Address [facility] Co de Phone Number [facility] [address] [employer]. [facility] [place] [address] * Allergen Albion (tree) IgE (12/28/2024 2:58 PM CDT) Albion (tree) IgE <0.10 0.00 - 0.34 kUnits/L Comment:Testing performed by : [facility], [address] [place] [address]., [id number] Blood 12/28/2024 2:58 PM CDT 12/28/2024 7:15 PM CDT Andrade Bryan MD LAB BLOOD ORDERABLES Fin al Result Performing Organization Address [facility] de Phone Number [facility] [address] [address] [employer]. [facility] [place] [address] * Allergen Evansville anguillan (tree) IgE (12/28/2024 2:58 PM CDT) [place] IgE <0.10 0.00 - 0.34 kUnits/L Comment:Testing performed by : [facility], [address] [place] [address]., [id number] Blood 12/28/2024 2:58 PM CDT 12/28/2024 7:15 PM CDT Andrade Bryan MD LAB BLOOD ORDERABLES Fin al Result Performing Organization Address [facility] Co de Phone Number [facility] [address] [address] [employer]. [facility] [place], [place] [id number] * Allergen Maple/Box elder (tree) IgE (12/28/2024 2:58 PM CDT) Maple/box elder IgE <0.10 0.00 - 0.34 kUnits/L Comment:Testing performed by : [facility], [address] [place]., [id number] Blood 12/28/2024 2:58 PM CDT 12/28/2024 7:15 PM CDT Andrade Bryan MD LAB BLOOD ORDERABLES Fin al Result Performing Organization Address [facility] de Phone Number [facility] [address] [address] [employer]. [facility] [place] [address] * Allergen Mentone red (tree) IgE (12/28/2024 2:58 PM CDT) [facility] Mentone IgE <0.10 0.00 - 0.34 kUnits/L Comment:Testing performed by : [facility], [address] [place] [address]., [id number] Blood 12/28/2024 2:58 PM CDT 12/28/2024 7:15 PM CDT Andrade Bryan MD LAB BLOOD ORDERABLES Fin al Result Performing Organization Address [facility] de Phone Number [facility] [address] [employer]. [facility] [place] [address] * IgE (12/28/2024 2:58 PM CDT) [facility] IgE 60 <=100 IUnits/mL Comment:Testing performed by : [facility], [address] [place] [address]., [id number] Blood 12/28/2024 2:58 PM CDT 12/28/2024 7:15 PM CDT Andrade Bryan MD LAB BLOOD ORDERABLES Fin al Result Performing Organization Address City/[facility] de Phone Number [facility] [address] [facility] [address] * Tryptase (12/24/2024 12:03 PM CDT) Tryptase 7.2 <11.0 mcg/L [facility] Blood 12/24/2024 12:0 3 PM CDT 12/24/2024 12:04 PM CDT Christine Estrada MD LAB BLOOD ORDERABLES Final Result Performing Organization Address [facility] Co de Phone Number [facility] [employer] [facility] [address] [facility] [place] [address] * GTT 75gm 2hr non-gestational screen (12/19/2024 9:11 AM CDT) Glucose, fasting 99 65 - 99 mg/dL [facility] 2 hour specimen 136 <140 mg/dL [facility] Comment [facility] Comment: [place] [employer] Diagnostic Criteria for Diabetes Mellitus Glucose Value (mg/dL) Interpretation Fasting 2 hr Tolerance ------- Normal <100 <140 Impaired Fasting 100-125 Impaired Tolerance 140-199 Diabetes > or =126* > or =200* * Must be confirmed by testing on a subsequent day. Blood 12/19/2024 9:11 AM CDT 12/19/2024 9:12 AM CDT Narrative [facility] - 12/20/2024 9:15 AM CDT FASTING:YES FASTING: YES Christine Estrada MD LAB BLOOD ORDERABLES Final Result Performing Organization Address City/[facility]/ZIP Co de Phone Number [facility] [address] [address] [facility] [place]une[place] [address] * T3, free (11/29/2024 9:53 AM CDT) Free T3 2.5 2.3 - 4.2 pg/mL [facility] Blood 11/29/2024 9:53 AM CDT 11/29/2024 9:55 AM CDT Narrative [facility] - 11/30/2024 9:51 AM CDT FASTING:YES FASTING: YES Christine Estrada MD LAB BLOOD ORDERABLES Final Result Performing Organization Address City/[facility]/ZIP Co de Phone Number [facility] [address] [place] [address] * TSH (11/29/2024 9:53 AM CDT) TSH 2.30 0.40 - 4.50 mIU/L [facility] Blood 11/29/2024 9:53 AM CDT 11/29/2024 9:55 AM CDT Narrative [facility] - 11/30/2024 9:51 AM CDT FASTING:YES FASTING: YES Christine Estrada MD LAB BLOOD ORDERABLES Final Result Performing Organization Address [facility] Co de Phone Number [facility] [address] [place] [address] * T4, free (11/29/2024 9:53 AM CDT) Free T4 1.0 0.8 - 1.8 ng/dL [facility] Blood 11/29/2024 9:5 3 AM CDT 11/29/2024 9:55 AM CDT Narrative [facility] - 11/30/2024 9:51 AM CDT FASTING:YES FASTING: YES Christine Estrada MD LAB BLOOD ORDERABLES Final Result Performing Organization Address [facility] Co de Phone Number [facility] [address] [place] [address] from Last [address] [facility] H[facility]/PPO Address: [address] [address] [facility]/PPO Address[address] [address] [facility]/PPO Address: [facility] [id number] [place] [id number] Care Teams Barber Tool Sharpener Relationship Specialty Start Date End Date January Espinoza NP [address] [facility] [address] [place] [address] PCP - General Nurse Practitioner 09/22/24 Matthew Perez MD [address] [facility] [address] [facility] [address] [place] [address] Referring Physician Obstetrics and Gynecology 09/22/24 Ramírez Torres MD [address] [facility] [address] [place] [address] Referring Physician Family Medicine 09/22/24
--- OUTSIDE RECORDS SUMMARY | 2025-02-22 10:29 | XMS_ITS | Encounter Summary ---
Author Organization [facility] Address [address] [place] [address] Phone Care Team Providers Care Kick Plate Installer Name Role Phone CullodenAugustine January Valerio [employer] MATH TEACHER Primary Care Provider Matthew Perez MD Unavailable [phone] Ramírez Torres MD Unavailable [phone] Encounter Details Date Type Department Care Team (Late st Contact Info) Description 01/16/2025 Results Follow-Up [facility] Medicine Allergy and Immunology [address] [facility] [address] [place] [address] Andrade Bryan MD [address] [place] [address] URINE MISC TO [place], URINE MISC TO [place], URINE MISC TO [place] Social History Tobacco Use Types Packs/Day Years [...] on file 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 documented in this encounter Plan of Treatment Not on file documented as of this encounter Visit Diagnoses Not on filedocumented in this encounter Care Teams Kick Plate Installer Relationship Specialty Start Date End Date January Espinoza NP [address] [facility], [address] [address] PCP - General Nurse Practitioner 09/22/24 Matthew Perez MD [address] [facility] [address] [place] [address] [place] [address] Referring Physician Obstetrics and Gynecology 09/22/24 Ramírez Torres MD [address] [facility] [address] [place] [address] Referring Physician Family Medicine 09/22/24 documented as of this encounter
--- OUTSIDE RECORDS SUMMARY | 2025-02-22 10:29 | XMS_ITS | Encounter Summary ---
Author Organization [facility] Address [address] [place] [address] Phone Care Team Providers Care Chief Resource Officer Name Role Phone SebastianAugustine January Valerio PROCESS ENGINEERING INTERN Primary Care Provider Matthew Perez MD Unavailable [phone] Ramírez Torres MD Unavailable [phone] Encounter Details Date Type Department Care Team (Latest Contact Info) Description 01/03/2025 Results Follow-Up [facility] Medicine Allergy and Immunology [address] [facility] [address] [place] [phone] Andrade Bryan MD [address] [place] [address] IgE, Allergen Epithelia/dander dog (animal) IgE, Allergen Dermatophagoides pteronyssinus (insect) IgE, Additional followed-up results: 23 Social History Tobacco Use Types Packs/Day Years [...] on file 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 Pink, Your environmental allergy labs were negative. I'll await your urine studies and contact you once Ihave the results. Andrade Moura MD documented in this encounter Plan of Treatment Not on file documented as of this encounter Visit Diagnoses Not on filedocumented in this encounter Care Teams Chief Resource Officer Relationship Specialty Start Date End Date January Espinoza NP [address] [facility] [address] [place] [address] PCP - General Nurse Practitioner 09/22/24 Matthew Perez MD [address] [facility] [address] [facility] [address] [place] [address] Referring Physician Obstetrics and Gynecology 09/22/24 Ramírez Torres MD [address] [facility] [address] [place] [address] Referring Physician Family Medicine 09/22/24 documented as of this encounter
--- NOTE | 2025-03-20 12:11 | P.SLEEP_ITS ---
Sleep Study - Home Unattended Date of Study: 02/22/25 Ordering Provider: Jessica Sin PA-C Interpreting Provider: Geno Arrington MD Home Sleep Study Type: Watch PAT Height: 1.52 m Weight: 48.081 kg Body Mass Index: 20.7 Neck Circumference (inches): 12 [place]: 7 Reason for Sleep Study Loud snoring, fatigue Sleep History Hortensia Pink is a 64-year-old woman who has loud snoring and fatigue. Her primary care offered sleep evaluation and she was agreeable to a home sleep test because she is very specific in her sleeping arrangements, would not feel comfortable other than sleeping in her own bed. She has difficulty returning to sleep when she awakens at night. She awakens earlier than she would like to. She uses sedatives to help get to sleep. She is anxious about her sleep. She wakes up several times during the night. Sometimes she goes to the bathroom. She had a prior sleep study around 2006 but cannot remember the results. She has daytime sleepiness and fatigue, she is not refreshed on waking and she has an urge to fall asleep during the day. She does not have drowsy driving. She denies having apnea at night. She denies gasping or choking at night. She denies having difficulty breathing when she sleeps on her back. She has morning headaches. She denies a dry mouth or sore throat in the morning. She does not have nocturnal heartburn. She denies an urge to move her legs, kicking at night, muscle weakness with strong emotion, feeling paralyzed on waking or falling asleep, vivid dreamlike scenes upon waking or falling asleep or dreaming during daytime naps. Her sleep survey indicates that she clenches her jaw and/or grinds her teeth at night. Her eye SI, insomnia severity index is elevated at 15. She has moderate difficulty falling asleep, mild difficulty staying asleep, moderate difficulty waking up too early, very dissatisfied with her sleep pattern, very much interfering with her daily functioning, somewhat impairing the quality of life and she somewhat worries about her sleep problem. Normal bedtime is 11:00 p.m., falling asleep within 30 minutes, spending 8-1/2 hours in bed, 7 hours of sleep. She keeps the same schedule closely on days off. Her sleep is a little bit restorative on days off. She takes planned naps in the afternoon with a duration of 1-2 hours. She is not certain of the naps are restorative. Habits: Tobacco : no Caffeine : no Alcohol : no Recreational substances : [] [facility] Past Medical History Medical History Fibromyalgia Anxiety Depression History of vaginal delivery Surgical History Surgical History History of laparoscopy Family History Family History Father Hypertension Family history of diabetes mellitus in first degree relative Mother Hypertension Grandparent Family history of coronary artery disease Other Cerebrovascular accident Social History Social History Smoking status: Never smoker Alcohol intake: current Alcohol use details: Rarely Substance use: never Lack of Transportation: No Lack of Food: Never True Current Housing: I Have Housing Concerned About Future Housing: No Difficulty Paying Gas/Electric Bills: No Difficulty Paying for Meds: No Currently Unemployed: No Education: Bachelor's Degree Difficulty w/ Childcare or Family Care: No Living arrangements: with family Occupation/Education: occupation Gender identity (if verbalized by the patient): Female Sexual Orientation (if Verbalized by the Patient): Straight or Heterosexual Spiritual care concerns: No Medications Home Medications ?Medication ?Instructions ?Recorded ?Confirmed ?Type Estriol/ Estradiol See Rx Instructions PO BID # 90 mg 08/17/24 08/17/24 Rx levocetirizine 5 mg tablet (Xyzal) 5 mg PO DAILY 08/17 History progesterone micronized 100 mg 60 mg PO QAM 08/17/24 History capsule trazodone 50 mg tablet 100 mg PO QHS PRN insomnia 0 08/17/24 History metronidazole 0.75 % topical cream 1 applic topical DA THIEN #45 grams 12/01/24 Rx ([employer]) gabapentin 300 mg capsule 300 mg PO TID 12/27/24 Hist ory naltrexone 50 mg tablet 50 mg PO DAILY 12/27/24 His tory Sleep Procedure The sleep study was completed using [email or web address] a technically adequate device with seven channels: peripheral arterial tone, actigraphy, body position, snore, respiratory movement, pulse oximetry, sleep staging, and heart rate. Prior to using the device, the patient received verbal and written instructions for its application and was provided with the help desk phone number for additional telephonic instruction with 24-hour availability of qualified personnel to answer questions. Sleep Architecture The total recording time is 8 hrs, 32 min. The total sleep time is 7 hrs, 36 min. Sleep latency is 21 minutes. REM latency is 217 minutes. The patient had 5 episodes of waking. Sleep architecture shows 18.7% deep sleep, 62.1% light sleep, and 19.2% stage REM. The patient spent 17.8% of total sleep time in the supine position. Sleep efficiency was 89%. Respiratory Analysis The overall AHI (pAHI 3%:) is 2.0. The central AHI is 0.0. The AHI was 0.8 in NREM and 6.9 in REM sleep. The AHI was 0.7 in Supine and 2.3 in Non-supine sleep. Percent of Rahul Garner respirations is 0.0. Oximetry Data The oxygen desaturation index (ORION 4%:) is 0.5. The mean saturation is 95%, and the lowest saturation is 92%. Time spent with saturation < 88% is 0.0 minutes. Snoring Profile Snoring average intensity is 41 dB. The patient snored above 45 decibels for 13.0 minutes, 2.8% of sleep time. Cardiac Profile The average pulse rate is 60 beats per minutes. The lowest pulse rate is 60 bpm. The highest pulse rate is 100 bpm. Cardiac rhythm analysis in sleep does not show atrial fibrillation. Assessment and Plan Assessment and Plan (1) Insomnia: Qualifiers: Insomnia type: unspecified Qualified Code(s): G47.00 - Insomnia, unspecified Code(s): G47.00 - Insomnia, unspecified Status: Acute Assessment and Plan: This home sleep test on 02/22/2025 does not show significant sleep disordered breathing. The apnea-hypopnea index is negligible; AHI is 2.0 using a 3% criteria and the apnea-hypopnea index is 1.2 using a 4% criteria. The lowest saturation is 92%. She had moderate snoring. She had a high sleep efficiency of 89%. It is unlikely that she has any significant sleep disordered breathing. On her sleep survey, she does not have restless feelings in her legs, and she does not kick at night. It is possible to have significant periodic limb movements without having symptoms. If the periodic limb movements arouse the patient from sleep, addressing this can improve sleep quality. Periodic limb movements are not a metric measured on a home sleep test. She has fibromyalgia, this condition can lead to alpha intrusion during sleep, and alpha intrusion may lead patients to feel less refreshed on waking. She had a sleep study in 2006. She does not recall the results. Her JADEN, insomnia Severity Index, is 15 which is moderately elevated. This is not a diagnostic tool but a screening tool. Clinical correlation is recommended. Data The data obtained during this sleep study is adequate for interpretation. Certification This sleep study has been reviewed by a board certified sleep medicine physician.
[2025-03-23 14:01] VITALS: BMI 20.7
== END 2025-02-24 11:22 | disposition home or self-care (01) ==
PROVIDERS: PCP Family Medicine
DX: G47.19 Other hypersomnia (principal); G47.00 Insomnia, unspecified; F39 Unspecified mood [affective] disorder
CPT/HCPCS: 95800